=== PATIENT | male | born 1970 | race Caucasian/White ===

== ENCOUNTER 2022-09-13 21:17 | Emergency (ER) | payer OTHER, SELFPAY ==
--- NOTE | ~2022-09-13 | CT_ITS ---
Clinical Indication: Trauma CT Scan of the Chest, Abdomen, and Pelvis with Contrast: Technique: Contiguous sections were acquired throughout the chest, abdomen, and pelvis after intraven ous administration of 100 cc of Omnipaque 350. Dose reduction technique was used on this scan by william alanizing automated exposure control and iterative reconstruction technique. The dose-length product (DL P) was 874.33 mGy-cm. Findings: There is no evidence of any significant mediastinal, hilar or axillary lymphadenopathy. The mediastin al soft tissues and vascular structures appear normal. There is no evidence of pleural or pericardial effusion. The lungs are clear. No pulmonary nodules or infiltrates are noted. The liver, spleen, pancreas, gallbladder, adrenals and kidneys are within normal limits. No evidence of aortic aneurysm. No lymphadenopathy. No bowel obstruction or bowel wall thickening. There is no evidence to suggest acute appendicitis. Urinary bladder is unremarkable. Prostate gland and seminal vesicles are unremarkable. Impression: No significant abnormalities seen. Reviewed, dictated and finalized at [facility]. Impression: No significant abnormalities seen.
--- NOTE | ~2022-09-13 | CT_ITS ---
Non-contrast Head CT History: Head injury Technique: Axial non-contrast imaging of the brain was performed. Dose reduction technique was used on this scan by utilizing automated exposure control and iterative reconstruction technique. The dose -length product (DLP) was 681.00 mGy-cm. Findings: There is no evidence of intracranial hemorrhage, mass lesion, or acute infarct. Brain par enchyma appears normal. The ventricles and subarachnoid spaces are normal in size. The calvarium ap pears normal. The visualized paranasal sinuses and mastoid air cells are clear. Impression: No significant abnormality seen. Reviewed, dictated and finalized at location . Impression: No significant abnormality seen.
--- NOTE | ~2022-09-13 | XR_ITS ---
Left elbow Technique: AP and lateral views were obtained. Clinical History: Status post fall, history of biceps tendon repair Findings: No acute fracture or dislocation is seen. Suture anchors at the proximal radius are consist ent with history of biceps tendon repair. Osseous alignment is anatomic. Joint spaces are preserved. There is no displacement of the fat pads, and soft tissues are unremarkable. Impression: No definite acute abnormality. Suture anchors at the proximal radius are consistent with history of biceps tendon repair. Reviewed, dictated and finalized at location . Impression: No definite acute abnormality. Suture anchors at the proximal radius are consistent with history of biceps ten don repair.
--- NOTE | ~2022-09-13 | CT_ITS ---
Noncontrast CT scan of the cervical spine Technique: Multiple contiguous axial [address] images of the cervical spine were obtained and rec onstructed in 2D sagittal and coronal planes on the acquisition scanner. Dose reduction technique was used on this scan by utilizing automated exposure control, adjustment of the mA and/or kV according to patient size. Clinical History: Pain Findings: No fractures or dislocations. Unremarkable visualized bony structures. The intervertebral disc spaces are preserved. No prevertebral soft tissue swelling. Impression: No fracture or subluxation of the cervical spine. Reviewed, dictated and finalized at location [facility]. Impression: No fracture or subluxation of the cervical spine.
[2022-09-13 21:24] VITALS: BP 146/92; PULSE 107; RESP 16; TEMP 37; O2SAT 98
[2022-09-13 21:30] VITALS: PULSE 103
[2022-09-13] MEDS: TETANUS,DIPHTHERIA,AC PERTUSSIS ADULT (0.5 ML) BOOSTRIX IM (21:47)
[2022-09-13 22:00] LABS: Basophils Absolute Auto 0.1 K/mm3 (0.0-0.1); Basophils Percent Auto 1.2 % (0.2-1.2); Eosinophils Absolute Auto 0.1 K/mm3 (0-0.3); Hemoglobin 15.5 g/dL (14.0-18.0); Immature Granulocyte Absolute 0.02 K/mm3 (0.00-0.031); Immature Granulocyte Percent A 0.2 % (0-0.5); Lymphocytes Absolute Auto 1.68 K/mm3 (0.9-3.2); Lymphocytes Percent Auto 19.5 % (18.3-44.2); Mean Corpuscular HGB Conc 34.4 g/dl (32-36); Mean Platelet Volume 9.9 fl (7.4-10.4); Monocytes Absolute Auto 0.7 K/mm3 (0.1-0.6); Neutrophils Percent Auto 70.1 % (45.5-73.1); Platelet Count Result 257 k/mm3 (150-375); Red Blood Count 5.17 M/mm3 (4.6-6.20); Red Cell Distribution Width 12.4 % (11.5-14.5); White Blood Count 8.6 K/mm3 (4.5-10.0)
[2022-09-13 22:01] VITALS: BP 137/89; PULSE 102; RESP 12; O2SAT 95
[2022-09-13 22:01] LABS: Appearance Urine Clear (Clear); Bilirubin Urine Negative (Negative); Blood Urine Negative (Negative); Color Urine Yellow (Yellow); Glucose Urine UA Negative (Negative); Ketones Urine Negative (Negative); Leukocyte Esterase Ur Negative LEU/UL (Negative); Nitrate Urine Negative (Negative); Protein Urine Negative (Negative); Specific Grav Ur 1.002 (1.001-1.035); Urobilinogen Urine 0.2 mg/dL (<2.0); pH Urine 5.5 (5.0-9.0)
[2022-09-13 22:03] LABS: Add Urine Microscopic? NO
[2022-09-13 22:09] LABS: Estimated CRCL calculation 53 ml/min; Estimated Glomerular Filt Rate 53
[2022-09-13 22:10] LABS: Alanine Aminotransferase 46 U/L (6-50); Albumin Level 4.5 g/dL (3.5-5.1); Alkaline Phosphatase 47 U/L (38-126); Anion Gap 11 mmol/L (8-16); Aspartate Amino Transferase 49 U/L (17-59); Bilirubin,Total 0.5 mg/dL (0.2-1.3); Blood Urea Nitrogen 19 mg/dL (9-20); Calcium 8.7 mg/dL (8.4-10.2); Carbon Dioxide 25 mmol/L (22-30); Chloride 100 mmol/L (98-107); Estimated CRCL calculation 67 ml/min; Estimated Glomerular Filt Rate > 60; Glucose 85 mg/dL (65-110); Potassium 3.8 mmol/L (3.4-5.0); Sodium 136 mmol/L (137-145)
--- NOTE | 2022-09-14 00:21 | ED.GENADULT ---
HPI - General Adult General Chief complaint: Trauma Stated complaint: fall through ceiling/lacerations to head Time Seen by Provider: 09/13/22 21:29 History of Present Illness HPI narrative: Patient is a 52-year-old gentleman who presents the emergency department with chief complaint of altered ceiling. The patient reports that he was working in the attic and fell through the floor landed on a [place] cabinet shattered the shot [place] cabinet has multiple scrapes over his body and reports pain in his left shoulder and left elbow. Patient reports not being on blood thinners and reports he is unsure of his last tetanus Related Data Allergies Allergy/AdvReac Type Severity Reaction Status Date / Time Penicillins Allergy Unknown Unknown Verified 09/13/22 21:18 Review of Systems Review of Systems: A 10 system review of systems was completed on the patient and is negative except for what is stated in the HPI. Nursing and ancillary documentation was reviewed. [facility] Surgical History Surgical History History of carpal tunnel release of both wrists Social History Social History Smoking status: Never smoker Second hand tobacco smoke exposure: No Alcohol intake: current Drinks per week: 6 Substance use: never Substance use type: does not use Lack of Transportation: No Lack of Food: Never True Current Housing: I Have Housing Concerned About Future Housing: No Difficulty Paying Gas/Electric Bills: No Difficulty Paying for Meds: No Currently Unemployed: No Education: Bachelor's Degree Difficulty w/ Childcare or Family Care: No Exam Narrative: GENERAL: Well-appearing, well-nourished, and in no acute distress. HEAD: Normocephalic, multiple superficial abrasions. EYES: PERRLA and EOMI. ENT: Nares clear, no rhinorrhea or epistaxis. Mucous membranes moist. NECK: Supple. CHEST: Clear to auscultation. No respiratory distress. HEART: Regular rate and rhythm. No murmur heard. Normal peripheral pulses. ABDOMEN: Soft, nontender, nondistended, normal active bowel sounds. EXTREMITIES: Normal range of motion. No edema. SKIN: Warm, dry, no rash. There are multiple abrasions present on the scalp and neck there is a contusion present proximal to the left elbow there is a abrasion present on the left scapular region NEURO: No focal deficits. Alert and oriented x3. PSYCH: Normal mood and affect. Course Vital Signs Vital signs: Vital Signs Temperature 37.0 C 09/13/22 21:24 Pulse Rate 107 H 09/13/22 21:24 Respiratory Rate 16 09/13/22 21:24 Blood Pressure 146/92 H 09/13/22 21:24 Pulse Oximetry 98 09/13/22 21:24 Oxygen Delivery Room Air 09/13/22 21:24 Temperature 37.0 C 09/13/22 21:24 Pulse Rate 102 H 09/13/22 22:01 Respiratory Rate 12 09/13/22 22:01 Blood Pressure 137/89 09/13/22 22:01 Pulse Oximetry 95 09/13/22 22:01 Oxygen Delivery Room Air 09/13/22 21:24 Procedures Laceration Laceration 1: Date: 09/14/22 Time: 00:37 Site: other (right posterior neck) Size (cm): 1 Description: linear Depth: simple, single layer Local Anesthetic: lidocaine 1% Amount of anesthesia used (mL): 2 Pre-repair: wound explored, irrigated and irrigated extensively ====== Skin Level ====== Skin layer closed with: prolene Size (cm): 4-0 Number of sutures: 2 Technique: simple, interrupted ====== Subcutaneous Layer ====== ====== Muscle Layer ====== ====== Tendon Layer ====== Laceration 2: Date: 09/14/22 Time: 00:38 Site: other (left posterior neck) Side (If applicable): left Size (cm): 1 Description: linear Depth: simple, single layer Local Anesthetic: lidocaine 1% Amount of anesthesia used (
[2022-09-14] MEDS: LIDOCAINE HCL 1% LOCAL INJ 10 ML VIAL (00:35)
== END 2022-09-14 00:54 | disposition home or self-care (01) ==
PROVIDERS: Emergency Provider Emergency Medicine; PCP Family Medicine
DX: S11.81XA Laceration without foreign body of other specified part of neck, initial encounter (principal); S09.90XA Unspecified injury of head, initial encounter; S00.01XA Abrasion of scalp, initial encounter; S40.022A Contusion of left upper arm, initial encounter; W17.89XA Other fall from one level to another, initial encounter; Z23 Encounter for immunization
CPT/HCPCS: 12001; 36415; 70450; 71260; 72125; 73070; 74177; 80053; 81003; 85025; 90471; 90715; 99284; Q9967